=== PATIENT | male | born 2000 | race Caucasian/White ===

== ENCOUNTER 2023-03-10 19:40 | Emergency (ER) | payer OTHER | END 2023-03-10 22:06 | disposition home or self-care (01) | LOC: JD.ED 19:40 | DX: S93.602A Unspecified sprain of left foot, initial encounter (principal); Z88.5 Allergy status to narcotic agent; W22.8XXA Striking against or struck by other objects, initial encounter | CPT/HCPCS: 73630-26-LT; 73630-LT; 99283 ==